=== PATIENT | female | born 1970 | race Native Hawaiian/Other Pacific Islander ===

== ENCOUNTER 2023-01-24 10:42 | Day surgery (SDC) | payer OTHER ==
[~2023-01-24] VITALS: Ht 154.9 cm; Wt 85.7 kg
== END 2023-01-24 14:20 | disposition home or self-care (01) ==
LOC: OR 10:42
PROVIDERS: ATTEND Internal Medicine Gastroenterology
PROC: 0DBH8ZZ Excision of Cecum, Via Natural or Artificial Opening Endoscopic (ICD-10-PCS; principal; 2023-01-24)
DX: D12.0 Benign neoplasm of cecum (principal); K64.8 Other hemorrhoids; Z80.0 Family history of malignant neoplasm of digestive organs; Z86.010 Personal history of colon polyps; Z12.11 Encounter for screening for malignant neoplasm of colon
CPT/HCPCS: J2704; J7120